=== PATIENT | male | born 1930 | race Caucasian/White ===

== ENCOUNTER 2016-05-15 06:16 | Observation (INO) | payer OTHER ==
--- NOTE | 2016-05-04 15:36 | GHP ---
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 The patient had a new CAT scan done at the oncology office in March of 2016, which demonstrated slightly more pronounced pneumoperitoneum as well as some increasing free f luid in the pelvis. This had been suspected to be due to pneumatosis intestinalis, and the patient p reviously was reported to be relatively asymptomatic; however, given its persistence and marginal int erval increase, further consultation with Dr. Garner was recommended. The patient reports although he has a history of celiac disease, his abdominal pain has decreased on stool softeners over the last f ew weeks. ALLERGIES: No known drug allergies. MEDICATIONS: Aspirin, finasteride. PAST SURGICAL HISTORY: Umbilical hernia repair, cholecystectomy, prostatectomy, ureteral stent place ment, hip and knee replacements. REVIEW OF SYSTEMS: He had a negative 10-point review of systems. SOCIAL HISTORY: Patient is , accompanied by his today in the office. Nonsmoker. PHYSICAL EXAM: GENERAL: Patient is a pleasant male in no apparent distress. HEAD AND NECK: Normoc ephalic, atraumatic. CHEST: CTA bilaterally. HEART: Regular rhythm and rate. ABDOMEN: There is a midline incision/midline scar approximately 4-6 inches long, inferior to the umbilicus. Soft abdom en to palpation, no significant distention. Negative rebound. EXTREMITIES: No lower extremity merlyn a. DATA REVIEWED: CT scan was reviewed from [facility]. IMPRESSION: An 86-year-old male with history of lymphoma in the past with persistent free air and pn eumatosis on followup CAT scans. RECOMMENDATION: Exploratory laparoscopy for etiology of free air. Prior to surgery, patient should have a 2-way abdomen x-ray. He will also need preoperative labs. Risks, including bowel injury, inf ection, nerve injury, chance of bowel resection, bleeding, were all discussed with the patient in det ail by Dr. Garner, who saw the patient in the office for greater than 30 minutes in consultation. Taylor rodriguez will be scheduled for May 15, 2016. /[id number]/MODL
[~2016-05-15 06:16] MED LIST: cefOXitin SODIUM 2 GM in D5W 100 ML IV ONE
[2016-05-15] MEDS ORDERED: PROPOFOL/EMULSION 500 MG/50 ML BOTTLE IV ONE (07:00)
[2016-05-15] MEDS ORDERED: REMIFENTANIL HCL 1 MG VIAL ONE (07:00)
[2016-05-15] MEDS ORDERED: LIDOCAINE 2% 5 ML SDV ONE (07:00)
[2016-05-15] MEDS ORDERED: fentaNYL 100 MCG/2 ML INJ ONE (07:00)
[2016-05-15] MEDS ORDERED: PROPOFOL 200 MG/20 ML VIAL ONE (07:01)
[2016-05-15] MEDS ORDERED: ROCURONIUM 50 MG/5 ML VIAL ONE (07:08)
[2016-05-15] MEDS ORDERED: LIDOCAINE 1% 5 ML SDV ONE (07:15)
[2016-05-15] MEDS ORDERED: BUPIVACAINE 0.5% 30 ML SDV ONE (07:36)
[2016-05-15] MEDS ORDERED: DEXAMETHASONE 4 MG/ML VIAL ONE (08:04)
[2016-05-15] MEDS ORDERED: epHEDrine SULFATE 10 MG/ML SYR ONE ×2 (08:16→08:23)
[2016-05-15] MEDS ORDERED: SUGAMMADEX SODIUM 200 MG/2 ML VIAL IVP ONE (08:43)
[2016-05-15] MEDS ORDERED: HYDROmorphONE/DILAUDID 1 MG/ML SYR IVP PRN (10:22)
[2016-05-15] MEDS ORDERED: ONDANSETRON 4 MG/2 ML VIAL IVP PRN (10:22)
[2016-05-15] MEDS ORDERED: HYDROCODONE/APAP 5/325 TAB PO PRN (10:22)
[2016-05-15] MEDS ORDERED: DOCUSATE SODIUM 100 MG CAP PO PRN (10:23)
--- NOTE | 2016-05-15 10:24 | POSTOPPROG ---
Post Op Note Date of Operation: 05/15/16 Surgeon: Betito Garner Speedboat Operator: Saritha Rodgers Anesthesiologist: Hank Morrison Anesthesia: GET(General Endotracheal) Pre-op Diagnosis: free abdominal air Post-op Diagnosis: extensive small bowel diverticulosis c pneumotosis intestinalis Procedure: ex-laparoscopy Findings: see diagnosis. no peritonitis. photos taken. Inf/Abcess present in the surg proc area at time of surgery?: No EBL: Minimal Complications: none Specimen(s): none
[2016-05-15] MEDS ORDERED: FINASTERIDE 5 MG TAB PO SCH (21:00)
[2016-05-16 07:48] VITALS: BP 114/69; PULSE 59; RESP 12; TEMP 97.7; O2SAT 94
[2016-05-16] MEDS ORDERED: ASPIRIN EC 81 MG TAB PO SCH (09:00)
--- NOTE | 2016-05-16 09:49 | SOAPPROG ---
SOAP Progress Note Assessment/Plan: Assessment: 86yo male s/p expl lap for pneumotosis ,history of free air --- no etiology found during surgery but extensive pneumotosis/diverticulosis. Undergoing treatment for lymphoma. tolerating regular diet, wants to go home, ambulating, already changed into street clothes. PE awake alert Abdomen midline scar, incisions clean/dry soft to palpation Plan: f/u in our office pt to continue stool softeners, high fiber diet. 05/16/16 09:46 Objective: Vital Signs Temp Pulse Resp BP Pulse Ox 36.5 C 59 L 12 114/69 94 05/16/16 07:47 05/16/16 07:47 05/16/16 07:47 05/16/16 07:47 05/16/16 07:47 05/15/16 05/16/16 05/17/16 05:59 05:59 05:59 Intake Total 1720 Output Total 1500 Balance 220 ICD10 Worksheet Patient Problems: Problems Problem Status Diagnosed Irreducible ventral incisional hernia Acute Lymphoma Acute Right inguinal hernia Acute
[2016-05-17] MEDS ORDERED: ENOXAPARIN 40 MG/0.4 ML SYR SC SCH (09:00)
--- NOTE | 2016-05-30 21:05 | GOP ---
[f rep st] OPERATIVE REPORT DATE OF OPERATION: 05/15/2016 SURGEON: Betito Garner MD SHEEP FARM WORKER: JELENA Garrett. ANESTHESIOLOGIST: Lion Morrison DO. PREOPERATIVE DIAGNOSIS: Significant free abdominal air. POSTOPERATIVE DIAGNOSIS: Significant free abdominal air with extensive small bowel diverticulosis with pneumatosis intestinalis. PROCEDURE PERFORMED: Exploratory laparoscopy. FINDINGS: DESCRIPTION OF PROCEDURE: Patient brought to the operating room, received satisfactory general endotracheal anesthesia by Dr. Morrison, placed in the supine position, prepped and draped in the usual sterile fashion. A periumbilical incision was made. A Veress needle inserted. Pneumoperitoneum was established. Trocar was introduced. Good visualization was obtained, and laparoscope introduced. Two small trocars were placed in the upper abdomen under direct vision. The bowel could then be manipulated. We saw extensive pneumatosis throughout the small bowel. It did not appear to involve the colon. There was actually pneumatosis in the subperitoneal area. The small bowel was evaluated. It had extensive diverticular disease particularly throughout the jejunum. Some of the terminal ileum was spared from jejunal disease, and the colon was largely uninvolved, although there were some sigmoid diverticula. There was no evidence of any perforation. No evidence of intraabdominal contamination. No evidence of peritonitis, but just the findings of extensive pneumatosis. No other intervention was done at that point. The trocars removed under direct vision. Trocar sites were closed with 4-0 Monocryl subcuticular stitch for the skin and all layers were infiltrated with Marcaine. Patient tolerated procedure well, was taken to the recovery room in good condition. There were no complications. /[id number]/MODL MTDD
== END 2016-05-16 09:28 | disposition home or self-care (01) ==
LOC: F3N 06:16 → F3E 10:55
PROVIDERS: ADMIT Surgery; ATTEND Surgery
PROC: 0DJW4ZZ Inspection of Peritoneum, Percutaneous Endoscopic Approach (ICD-10-PCS; principal; 2016-05-15 08:00)
DX: K63.89 Other specified diseases of intestine (principal); K57.10 Diverticulosis of small intestine without perforation or abscess without bleeding; C85.90 Non-Hodgkin lymphoma, unspecified, unspecified site; K90.0 Celiac disease
CPT/HCPCS: 49320; J0694; J1100; J2704; J3010

== ENCOUNTER → 2016-09-04 | Outpatient (CLI) | payer OTHER | LOC: CIMAGING 10:41 | PROVIDERS: ATTEND Internal Medicine Gastroenterology | DX: R14.0 Abdominal distension (gaseous) (principal); Z86.010 Personal history of colon polyps; C85.90 Non-Hodgkin lymphoma, unspecified, unspecified site | CPT/HCPCS: 74020-PO; 82784-90; 83516-90 ==

== ENCOUNTER 2018-07-31 11:44 | Observation (INO) | payer OTHER ==
[2018-07-31] MEDS ORDERED: ceFAZolin 2 GM/DEXTROSE 100 ML IV ONE (11:58)
[2018-07-31] MEDS ORDERED: LR 1,000 ML IV ONE (11:59)
--- NOTE | 2018-07-31 12:28 | PDANEPAE ---
ANE History of Present Illness ventral hernia ANE Past Medical History - Cardiovascular History Hx Hypertension: No Hx Arrhythmias: No Hx Chest Pain: No Hx Coronary Artery / Peripheral Vascular Disease: No Hx CHF / Valvular Disease: No Hx Palpitations: No Cardiovascular History Comment: NO CHEST PAIN. NO SOB - Pulmonary History Hx COPD: No Hx Asthma/Reactive Airway Disease: No Hx Recent Upper Respiratory Infection: No Hx Oxygen in Use at Home: No Hx Sleep Apnea: No Sleep Apnea Screening Result - Last Documented: Negative - Neurologic History Hx Cerebrovascular Accident: No Hx Seizures: No Hx Dementia: No - Endocrine History Hx Diabetes: No Hypothyroid: No Hyperthyroid: No Obesity: no - Renal History Hx Renal Disorders: Yes Renal History Comment: on Rx urgency.Hx of stent placement - Liver History Hx Hepatic Disorders: No - Neurological & Psychiatric Hx Hx Neurological and Psychiatric Disorders: No - Cancer History Hx Cancer: Yes Cancer History Comment: NON-HODGKINS LYMPHOMA. CHEMO 2002. Jan 2016 tx w/ Rituximab x 4 weeks. L.D. 10/2017 - Congenital Disorder History Hx Congenital Disorders: No - GI History Hx Gastrointestinal Disorders: Yes Gastrointestinal History Comment: CELIAC DISEASE. Current abd discomfort -worse after BM. - Other Health History Other Health History: SKIN BIOPSY ON FOREARM - Chronic Pain History Chronic Pain: Yes (RIGHT KNEE PAIN) - Surgical History Prior Surgeries: Ventral hernia repair- explor laparoscopy 11-28, BILATERAL HIP REPLACEMENT. LEFT TOTAL KNEE REPLACEMENT. 2000 CHOLELITHIASIS. 2000 TURP. PORT PLACEMENT. GAMMA KNIFE SURGERY. EGD. BILATERAL CATARACTS 2014. UTEROSCOPY ANE Review of Systems Review of systems is: negative Review of Systems: - Exercise capacity Exercise capacity: >=4 METS METS (RN): 4 METS ANE Patient History - Allergies Allergies/Adverse Reactions: gluten [Gluten] Allergy (Severe, Verified 05/14/16 16:57) GI UPSET, BLOATING - Home Medications Home medications: home medication list seen and reviewed Home Medications: RX: Docusate Sodium [Colace 100 MG (*)] 100 mg PO DAILY PRN 05/10/16 [Last Taken 1 Day Ago ~07/30/18] RX: Finasteride 5 mg PO HS 05/10/16 [Last Taken 2 Weeks Ago ~07/17/18] - NPO status NPO Status: no food or drink >8 hours - Anes Hx Anes Hx: no prior problems - Smoking Hx Smoking Status: Never smoked - Family Anes Hx Family Hx Anesthesia Complications: NONE ANE Labs/Vital Signs - Vital Signs Height: 180.34 cm Weight: 80.739 kg ANE Physical Exam - Airway Neck exam: FROM Mallampati Score: Class 2 - Pulmonary Pulmonary: no respiratory distress - Cardiovascular Cardiovascular: regular rate and rhythym - ASA Status ASA Status: II ANE Anesthesia Plan Anesthesia Plan: general endotracheal anesthesia
[2018-07-31] MEDS ORDERED: BUPIVACAINE 0.5% 30 ML SDV ONE (12:29)
--- NOTE | 2018-07-31 12:31 | PDHPUP ---
History & Physical Update H&P update statement: This history and physical update is based on an assessment of the patient which was completed after admission or registration (within 24 hours), but prior to the surgery/procedure. H&P update: H&P reviewed & patient examined, no change in patient's condition since H&P completed
[2018-07-31] MEDS ORDERED: fentaNYL 100 MCG/2 ML INJ ONE (12:39)
[2018-07-31] MEDS ORDERED: PROPOFOL 200 MG/20 ML VIAL ONE (12:39)
[2018-07-31] MEDS ORDERED: ROCURONIUM 50 MG/5 ML VIAL ONE (12:41)
[2018-07-31] MEDS ORDERED: LIDOCAINE 2% 5 ML SDV ONE (12:42)
[2018-07-31] MEDS ORDERED: ONDANSETRON 4 MG/2 ML VIAL ONE (13:37)
[2018-07-31] MEDS ORDERED: SUGAMMADEX SODIUM 200 MG/2 ML VIAL IVP ONE (13:44)
[2018-07-31] MEDS ORDERED: METOCLOPRAMIDE 10 MG/2 ML VIAL IVP PRN (13:49)
[2018-07-31] MEDS ORDERED: MEPERIDINE 25 MG/0.5 ML AMP IVP PRN (13:49)
[2018-07-31] MEDS ORDERED: DEXAMETHASONE 4 MG/ML VIAL IVP PRN (13:49)
[2018-07-31] MEDS ORDERED: fentaNYL 100 MCG/2 ML INJ IVP PRN (13:49)
[2018-07-31] MEDS ORDERED: NALOXONE HCL 0.4 MG/ML INJ IVP PRN (13:49)
[2018-07-31] MEDS ORDERED: LABETALOL HCL 5 MG/ML 20 ML MDV IVP PRN (13:49)
[2018-07-31] MEDS ORDERED: ACETAMINOPHEN 500 MG TAB PO PRN (13:49)
[2018-07-31] MEDS ORDERED: LR 500 ML IV PRN (13:49)
[2018-07-31] MEDS ORDERED: PROMETHAZINE HCL 25 MG/ML INJ IVP PRN (13:49)
[2018-07-31] MEDS ORDERED: oxyCODONE IR 5 MG TAB PO PRN ×2 (13:49→14:01)
[2018-07-31] MEDS ORDERED: HYDROmorphONE/DILAUDID 1 MG/ML INJ IVP PRN ×2 (13:49→14:02)
[2018-07-31] MEDS ORDERED: ALBUTEROL 3 ML DEYVIAL IH PRN (13:49)
[2018-07-31] MEDS ORDERED: ONDANSETRON DISINTEGRATING 4 MG TAB PO PRN (14:03)
[2018-07-31] MEDS ORDERED: ONDANSETRON 4 MG/2 ML VIAL IVP PRN (14:03)
--- NOTE | 2018-07-31 14:05 | POSTOPPROG ---
Post Op Note Date of Operation: 07/31/18 Surgeon: Betito Garner Director Of Field Sales: Judson Anesthesiologist: Ivy Anesthesia: GET(General Endotracheal) Pre-op Diagnosis: Recurrent ventral hernia Post-op Diagnosis: Abdominal wall laxity, diastasis recti Procedure: Open repair of diastasis recti Findings: No true hernia Inf/Abcess present in the surg proc area at time of surgery?: No Depth: Organ Space EBL: Minimal
--- NOTE | 2018-07-31 15:47 | POSTANESTH ---
Post Anesthetic Evaluation Cardiovascular Status: Normal, Stable Respiratory Status: Normal, Stable Level of Consciousness/Mental Status: Can Participate in Eval Pain Control: Adequate, Prn Tx Ordered Nausea/Vomiting Control: Adequate, Prn Tx Ordered Complications Possibly Related to Anesthesia: None Noted
[2018-07-31] MEDS ORDERED: CEPACOL LOZENGE PO PRN (16:08)
[2018-07-31] MEDS: NS 1,000 ML IV SCH (18:09)
[2018-07-31] MEDS: ACETAMINOPHEN 325 MG TAB PO PRN (23:41)
[2018-08-01] MEDS: ACETAMINOPHEN 325 MG TAB PO PRN ×2 (04:07→09:07)
[2018-08-01] MEDS: NS 1,000 ML IV SCH (04:08)
[2018-08-01 04:25] VITALS: BP 116/69
--- NOTE | 2018-08-01 10:06 | SOAPPROG ---
SOAP Progress Note Assessment/Plan: Assessment/plan: 88 y/o M s/p diastasis recti repair. Pain controlled Incision well dressed. Dispo: home. S: No complaints. Pain well controlled with tylenol. O: Alert Afebrile RRR No increased WOB Abdomen: soft, nontender, nondistended, incision well dressed, normoactive bowel sounds. 08/01/18 10:04 Objective: Vital Signs Temp Pulse Resp BP Pulse Ox 36.9 C 66 18 116/69 93 08/01/18 04:24 08/01/18 04:24 08/01/18 04:24 08/01/18 04:24 08/01/18 04:24 07/31/18 08/01/18 08/02/18 05:59 05:59 05:59 Intake Total 2204 Output Total 20 Balance 2184 ICD10 Worksheet Patient Problems: Problems Problem Status Onset Irreducible ventral incisional hernia Acute Lymphoma Acute Right inguinal hernia Acute
--- NOTE | 2018-08-04 22:40 | GOP ---
[f rep st] OPERATIVE REPORT DATE OF OPERATION: 07/31/2018 SURGEON: Betito Garner MD PLANT ACCOUNTANT: Angie Roper, nurse practitioner. PREOPERATIVE DIAGNOSIS: Recurrent ventral hernia. POSTOPERATIVE DIAGNOSIS: Recurrent ventral hernia. PROCEDURE PERFORMED: Open ventral hernia repair. FINDINGS: The patient was found to have mesh intact in his previous hernia repair. He had more of a diastasis and eventration in the area than the true hernia hole. DESCRIPTION OF PROCEDURE: Patient was taken to the operating room where he received a satisfactory g eneral endotracheal anesthesia. He was placed in supine position, prepped and draped in the usual st erile fashion. A midline incision was made through the previous old scar and dissection extended jefferson n through the subcutaneous tissue down to the hernia sac. This was identified and carefully dissecte d free. The back was opened and appeared to be lined with mesh and appeared to be more of an eventra tion than a true hernia sac. Abdomen was carefully entered. The abdominal wall was palpated with no other defects being found. So I elected to imbricate the wound closure in a 2-layer fashion with #1 PDS mattress sutures. These sutures were tied without tension. The wound was infiltrated with 0.5% Marcaine. Subcu was closed with a running 2-0 Vicryl and the skin with a 4-0 Monocryl subcuticular stitch. He tolerated procedure well, taken to recovery room in good condition. Blood loss negligibl e. No complications. /[id number]/MODL
== END 2018-08-01 09:12 | disposition home or self-care (01) ==
LOC: FSGY 11:44 → F3N 14:00 → F1N 14:47
PROVIDERS: ADMIT Surgery; ATTEND Surgery
PROC: 0WQF0ZZ Repair Abdominal Wall, Open Approach (ICD-10-PCS; principal; 2018-07-31 13:00)
DX: K43.2 Incisional hernia without obstruction or gangrene (principal); C85.90 Non-Hodgkin lymphoma, unspecified, unspecified site; K90.0 Celiac disease
CPT/HCPCS: 49565; G0378; J0690; J2405; J2704; J3010